=== PATIENT | male | born 1975 | race Caucasian/White ===

== ENCOUNTER 2018-04-16 16:34 | Emergency (ER) | payer SELFPAY ==
[~2018-04-16] VITALS: Ht 180.3 cm; Wt 91.4 kg
[2018-04-16 16:41] VITALS: BP 144/67; TEMP 97.5
[2018-04-16 18:31] LABS: BASO # 0.1 (0.0-0.2); BASO % 0.4 % (0.0-2.0); EOS # 0.1 (0.0-0.7); EOS % 0.6 % (0-4.0); GRAN # 9.3 (1.4-6.5); GRAN % 72.7 % (42.2-75.2); HEMATOCRIT 39.6 % (42.0-52.0); HEMOGLOBIN 13.3 g/dl (13.5-18.0); LYMPH # 2.2 (1.2-3.4); LYMPH % 16.8 % (20.0-51.0); MEAN CELL VOLUME 94 fl (80.0-100.0); MEAN CORPUSCULAR HEMOGLOBIN 32 pg (27.0-31.0); MEAN CORPUSCULAR HGB CONC 34 g/dl (33.0-37.0); MEAN PLATELET VOLUME 9.2 fl (7.4-10.4); MONO # 1.2 (0.1-0.6); MONO % 9.1 % (1.7-9.3); PLATELET COUNT 326 K/mm3 (130-400); RED BLOOD COUNT 4.22 M/mm3 (4.20-5.60); REDCELL DISTRIBUTION WIDTH-CV 12.3 % (11.5-14.5)
[2018-04-16 18:34] LABS: ALBUMIN 3.5 gm/dL (3.5-5.0); BILIRUBIN,TOTAL 0.2 mg/dL (0.0-1.0); C-REACTIVE PROTEIN 5.9 mg/dL (0.0-0.9); CALCIUM 8.4 mg/dL (8.4-10.2); CREATININE, serum 0.81 mg/dL (0.66-1.25); TOTAL PROTEIN 6.7 gm/dL (6.4-8.2)
[2018-04-16] MEDS ORDERED: DOXYCYCLINE HY100 MG PO (20:12)
[2018-04-16] MEDS ORDERED: OMNICEF 300MG300 MG PO (20:12)
[2018-04-16 20:40] VITALS: PULSE 101
== END 2018-04-16 20:40 | disposition home or self-care (01) ==
LOC: COL.ER 16:34
PROVIDERS: Physician Assistant
DX: L03.116 Cellulitis of left lower limb (principal); M79.662 Pain in left lower leg; F41.9 Anxiety disorder, unspecified; G47.00 Insomnia, unspecified; F17.290 Nicotine dependence, other tobacco product, uncomplicated; Z88.0 Allergy status to penicillin

== ENCOUNTER 2018-11-16 15:00 | Emergency (ER) | payer SELFPAY ==
[~2018-11-16] VITALS: Ht 180.3 cm; Wt 86.4 kg
[~2018-11-16 15:00] MED LIST: DOXYCYCLINE HY100 MG PO; OMNICEF 300MG300 MG PO
[2018-11-16 15:27] VITALS: BP 131/65; PULSE 114; TEMP 98.4
[2018-11-16 18:32] LABS: BASO # 0.1 (0.0-0.2); BASO % 0.7 % (0.0-2.0); EOS # 0.1 (0.0-0.7); EOS % 1.1 % (0-4.0); GRAN # 4.3 (1.4-6.5); GRAN % 57.1 % (42.2-75.2); HEMATOCRIT 45.5 % (42.0-52.0); HEMOGLOBIN 15.2 g/dl (13.5-18.0); LYMPH # 2.4 (1.2-3.4); LYMPH % 31.4 % (20.0-51.0); MEAN CELL VOLUME 95 fl (80.0-100.0); MEAN CORPUSCULAR HEMOGLOBIN 32 pg (27.0-31.0); MEAN CORPUSCULAR HGB CONC 33 g/dl (33.0-37.0); MEAN PLATELET VOLUME 9.3 fl (7.4-10.4); MONO # 0.7 (0.1-0.6); MONO % 9.4 % (1.7-9.3); PLATELET COUNT 376 K/mm3 (130-400); RED BLOOD COUNT 4.81 M/mm3 (4.20-5.60); REDCELL DISTRIBUTION WIDTH-CV 12.5 % (11.5-14.5)
[2018-11-16 18:47] LABS: ALBUMIN 4.2 gm/dL (3.5-5.0); BILIRUBIN,TOTAL 0.2 mg/dL (0.0-1.0); CREATININE, serum 0.84 (0.66-1.25); TOTAL PROTEIN 7.2 gm/dL (6.4-8.2)
[2018-11-16] MEDS ORDERED: DOXYCYCLINE 10100 MG PO ×3 (19:02→19:20)
== END 2018-11-16 19:18 | disposition home or self-care (01) ==
LOC: COL.ER 15:00
PROVIDERS: Nurse Practitioner
DX: L02.413 Cutaneous abscess of right upper limb (principal); R25.2 Cramp and spasm; F17.210 Nicotine dependence, cigarettes, uncomplicated; Z88.0 Allergy status to penicillin

== ENCOUNTER 2020-07-08 08:02 | Emergency (ER) | payer SELFPAY ==
[~2020-07-08] VITALS: Ht 180.3 cm; Wt 90.9 kg
[~2020-07-08 08:02] MED LIST changes: +DOXYCYCLINE 10100 MG PO
[2020-07-08 09:16] VITALS: BP 117/74; PULSE 97; TEMP 98.3
== END 2020-07-08 09:16 | disposition home or self-care (01) ==
LOC: COL.ER 08:02
DX: S90.02XA Contusion of left ankle, initial encounter (principal); F17.290 Nicotine dependence, other tobacco product, uncomplicated; V00.131A Fall from skateboard, initial encounter
CPT/HCPCS: J1885

== ENCOUNTER 2023-06-25 11:54 | Emergency (ER) | payer SELFPAY ==
[~2023-06-25] VITALS: Ht 180.3 cm; Wt 54.5 kg
[~2023-06-25 11:54] MED LIST changes: +CLEOCIN HC150 MG/CAP PO; +IBU800 M1 PO; +NORCO 325 MG-51 TAB PO
[2023-06-25 11:56] VITALS: TEMP 98.4
[2023-06-25 12:24] LABS: HEMATOCRIT 45.3 % (42.0-52.0); HEMOGLOBIN 14.5 g/dl (13.5-18.0); MEAN CELL VOLUME 91 fl (80.0-100.0); MEAN CORPUSCULAR HEMOGLOBIN 29 pg (27-31); MEAN CORPUSCULAR HGB CONC 32 g/dl (33.0-37.0); MEAN PLATELET VOLUME 9.2 fl (7.4-10.4); PLATELET COUNT 271 K/mm3 (130-400); RED BLOOD COUNT 4.96 M/mm3 (4.20-5.60); REDCELL DISTRIBUTION WIDTH-CV 13.1 % (11.5-14.5)
[2023-06-25 12:41] LABS: ALANINE AMINOTRANSFERASE 30 U/L (0-55); ALBUMIN 3.3 g/dL (3.5-5.0); ALKALINE PHOSPHATASE 79 U/L (40-150); ANION GAP 11 mmol/L (7-16); AST,SGOT 30 U/L (5-34); BILIRUBIN,TOTAL 0.4 mg/dL (0.2-1.2); BLOOD UREA NITROGEN 18 mg/dL (9-21); CALCIUM 9.2 mg/dL (8.4-10.2); CHLORIDE 107 mEq/L (98-107); CREATININE, serum 1.05 mg/dL (0.72-1.25); GLUCOSE 105 mg/dL (70-99); SALICYLATE < 5.0 mg/dL (15.0-30.0); SODIUM 139 mEq/L (136-145)
[2023-06-25 15:00] VITALS: BP 106/68; PULSE 83
== END 2023-06-25 15:00 ==
LOC: COL.ER 11:54
PROVIDERS: Emergency Medicine
DX: Z00.00 Encounter for general adult medical examination without abnormal findings (principal)